=== PATIENT | female | born 2000 | race African-American/Black ===

== ENCOUNTER 2021-06-19 11:35 | Emergency (ER) | payer OTHER ==
[~2021-06-19] VITALS: Ht 162.6 cm; Wt 50.0 kg
[2021-06-19 12:14] LABS: BASOPHILS % 0.6 % (0.0-2.0); EOSINOPHILS % 0.9 % (0.0-5.0); HEMATOCRIT. 38.4 % (36.0-48.0); HEMOGLOBIN. 12.7 g/dL (12.0-16.0); LYMPHOCYTES % 52.2 % (20.0-50.0); MEAN CORPUSCULAR HEMOGLOBIN 29.2 pg (28.0-32.0); MEAN CORPUSCULAR VOLUME 88.2 fL (81.0-99.0); MEAN PLATELET VOLUME 8.1 fl (7.4-10.4); MONOCYTES % 11.2 % (2.0-8.0); NEUTROPHILS % 35.1 % (40.0-76.0); PLATELET 265 x1000/uL (130-400); RED BLOOD CELL COUNT 4.36 mill/uL (4.2-5.4); RED CELL DISTRIBUTION WIDTH 12.6 % (11.6-14.6)
[2021-06-19 14:00] VITALS: BP 115/72
[2021-06-19 14:39] LABS: CLARITY URINE CLEAR (CLEAR); COLOR URINE YELLOW (YELLOW); KETONES URINE TRACE (NEGATIVE); LEUKOCYTE ESTERASE URINE NEGATIVE (NEGATIVE); NITRITE URINE NEGATIVE (NEGATIVE); OCCULT BLOOD URINE 3+ (NEGATIVE); PH URINE 5.5 (4.5-8.0); PROTEIN URINE NEGATIVE (NEGATIVE); SPECIFIC GRAVITY URINE 1.017 (1.005-1.030)
== END 2021-06-19 15:27 | disposition home or self-care (01) ==
LOC: ER 11:35
DX: N92.1 Excessive and frequent menstruation with irregular cycle (principal); R10.2 Pelvic and perineal pain; N85.00 Endometrial hyperplasia, unspecified; N83.202 Unspecified ovarian cyst, left side; N83.201 Unspecified ovarian cyst, right side; D72.819 Decreased white blood cell count, unspecified
CPT/HCPCS: 36415; 76830; 76856; 81003; 81025; 85025; 99284

== ENCOUNTER 2022-01-09 10:42 | Emergency (ER) | payer MEDICAID, OTHER ==
[~2022-01-09] VITALS: Ht 170.2 cm; Wt 57.0 kg
[2022-01-09 15:23] VITALS: BP 112/68
== END 2022-01-09 15:24 | disposition home or self-care (01) ==
LOC: ER 10:42
DX: M79.89 Other specified soft tissue disorders (principal); F12.10 Cannabis abuse, uncomplicated
CPT/HCPCS: 73630; 99283; Z7610

== ENCOUNTER 2022-11-14 15:09 | Emergency (ER) | payer MEDICAID, OTHER ==
[~2022-11-14] VITALS: Ht 160 cm; Wt 54.5 kg
[2022-11-14 15:12] VITALS: BP 119/78
[2022-11-14 16:00] LABS: HEMATOCRIT. 37.2 % (36.0-48.0); HEMOGLOBIN. 12.7 g/dL (12.0-16.0); MEAN CORPUSCULAR VOLUME 87.7 fL (81.0-99.0); MEAN PLATELET VOLUME 8.2 fl (7.4-10.4); PLATELET 292 x1000/uL (130-400); RED BLOOD CELL COUNT 4.25 mill/uL (4.2-5.4); RED CELL DISTRIBUTION WIDTH 13.5 % (11.6-14.6)
[2022-11-14 16:04] LABS: CHLORIDE 110 mEq/L (98-107)
[2022-11-14 17:54] LABS: PLATELET ESTIMATE NORMAL
[2022-11-14] MEDS ORDERED: ACET-2708 MT (18:06)
[2022-11-14] MEDS ORDERED: ACYC200C31 MT (18:06)
[2022-11-14] MEDS ORDERED: ONDA4TAB50 MT (18:06)
[2022-11-14] MEDS ORDERED: PROT40 MT (18:06)
[2022-11-14] MEDS ORDERED: ONDANSETRON 4MG ODT PO NR (18:15)
[2022-11-14] MEDS ORDERED: MAGNESIUM/ALUMINUM HYDROXIDE/SIMETHICONE 30ML UDC PO NR (18:15)
== END 2022-11-14 18:19 | disposition home or self-care (01) ==
LOC: ER 15:09
DX: A08.4 Viral intestinal infection, unspecified (principal)
CPT/HCPCS: 36415; 80053; 83690; 85025; 99283; Q0162

== ENCOUNTER 2024-02-01 21:28 | Emergency (ER) | payer MEDICAID, OTHER ==
[~2024-02-01] VITALS: Ht 162.6 cm; Wt 55.0 kg
[~2024-02-01 21:28] MED LIST: ACET-2708 MT; ACYC200C31 MT; ONDA4TAB50 MT; PROT40 MT
[2024-02-01 21:51] VITALS: BP 104/67; PULSE 63; RESP 20; O2SAT 99
[2024-02-01 22:44] LABS: BASOPHILS % 0.3 % (0.0-2.0); HEMATOCRIT. 39.8 % (36.0-48.0); HEMOGLOBIN. 13.3 g/dL (12.0-16.0); LYMPHOCYTES % 18.2 % (20.0-50.0); MEAN CORPUSCULAR HEMOGLOBIN 30.5 pg (28.0-32.0); MEAN CORPUSCULAR HGB CONC 33.4 g/dL (31.0-37.0); MEAN CORPUSCULAR VOLUME 91.3 fL (81.0-99.0); MONOCYTES % 5.4 % (2.0-8.0); NEUTROPHILS % 76.1 % (40.0-76.0); PLATELET 277 x1000/uL (130-400); RED BLOOD CELL COUNT 4.36 mill/uL (4.2-5.4); RED CELL DISTRIBUTION WIDTH 12.9 % (11.6-14.6); WHITE BLOOD COUNT 6.1 x1000/uL (4.5-11.0)
[2024-02-01 22:52] LABS: CARBON DIOXIDE 22 mEq/L (21-32); CHLORIDE 104 mEq/L (98-107); POTASSIUM 3.5 mEq/L (3.5-5.1); SODIUM 134 mEq/L (136-145)
[2024-02-01 22:53] LABS: CALCIUM 9.5 mg/dL (8.7-10.4)
[2024-02-01 22:57] LABS: CREATININE 0.6 mg/dL (0.6-1.0)
[2024-02-01 22:58] LABS: GLUCOSE 120 mg/dL (70-105); UREA NITROGEN BLOOD < 5 mg/dL (9-23)
[2024-02-01 22:59] LABS: ALANINE AMINOTRANSFERASE 11 IU/L (10-49); ALBUMIN 4.8 g/dL (3.2-4.8); ASPARTATE AMINOTRANSFERASE 20 IU/L (<34)
[2024-02-01 23:00] LABS: BILIRUBIN DIRECT 0.2 mg/dL (<=3.0); BILIRUBIN TOTAL 0.5 mg/dL (0.1-1.0); HCG SCREEN POSITIVE; PROTEIN TOTAL 7.6 g/dL (6.0-8.3)
[2024-02-01] MEDS: ONDANSETRON HCL 4MG/2ML INJ IV ONE (23:35)
[2024-02-01] MEDS: ACETAMINOPHEN 325MG TABLET PO ONE (23:35)
[2024-02-01] MEDS: SODIUM CHLORIDE 0.9% 1,000 ML IV ONE (23:35)
[2024-02-01 23:38] VITALS: TEMP 98.3
[2024-02-02] MEDS ORDERED: ONDA4TAB11 PO (00:51)
[2024-02-02] MEDS: ONDANSETRON 4MG ODT PO ONE (00:51)
== END 2024-02-02 01:10 | disposition home or self-care (01) ==
LOC: ER 21:28
DX: O21.0 Mild hyperemesis gravidarum (principal); F12.10 Cannabis abuse, uncomplicated; Z3A.01 Less than 8 weeks gestation of pregnancy; Z98.890 Other specified postprocedural states
CPT/HCPCS: 99283; 96374; 96361; 80076; 80048; 84703; 84702; 83690; 85025; 36415; J2405; J7030; Q0162

== ENCOUNTER 2024-02-02 12:47 | Emergency (ER) | payer OTHER ==
[~2024-02-02] VITALS: Ht 160 cm; Wt 55.0 kg
[~2024-02-02 12:47] MED LIST changes: +ONDA4TAB11 PO
[2024-02-02 12:51] VITALS: BP 119/70; RESP 18; TEMP 98.1; O2SAT 100
[2024-02-02 12:52] VITALS: PULSE 61
== END 2024-02-02 14:00 | disposition left against medical advice (07) ==
LOC: ER 12:47
DX: O26.891 Other specified pregnancy related conditions, first trimester (principal); R11.2 Nausea with vomiting, unspecified; Z53.21 Procedure and treatment not carried out due to patient leaving prior to being seen by health care provider; Z3A.01 Less than 8 weeks gestation of pregnancy